=== PATIENT | male | born 1965 | race Caucasian/White ===

== ENCOUNTER 2018-12-15 17:07 | Inpatient (IN) ==
[2018-12-15] MEDS ORDERED: THIAMINE INJ 100 MG, FOLIC ACID INJ 1 MG, MULTIVITAMIN INJ 10 ML in SODIUM CHLORIDE 0.9... IV ONE (18:30)
[2018-12-15] MEDS: chlordiazePOXIDE 25 MG CAPSULE PO SCH ×2 (19:18→23:32)
[2018-12-15] MEDS: NICOTINE 21 MG/24 HR PATCH TRANSDERM SCH (19:19)
[2018-12-15] MEDS: ENOXAPARIN 40 MG/0.4 ML SYRINGE SUBCUT SCH (20:15)
[2018-12-15] MEDS: LORazepam 2 MG/1 ML VIAL IV PRN (21:49)
[2018-12-16 04:46] LABS: Basophils % 0.2 % (0.0-0.8); Eosinophils # 0.1 10*3/uL (0.0-0.87); Eosinophils % 1.6 % (0.00-10.9); Hematocrit 35.4 VOL% (42.0-52.0); Hemoglobin 11.7 GM/DL (14.0-18.0); Immature Granulocytes % 0.2 %; Immature Granulocytes Absolute 0.01 #; Lymphocytes # 1.4 10*3/uL (1.4-4.0); Lymphocytes % 32.3 % (21.2-54.2); Mean Corpuscular HGB Conc 33.1 GM/DL (32-36); Mean Corpuscular Volume 99.4 FL (87-102); Mean Platelet Volume 9.5 FL (9.6-12.0); Monocytes % 11.5 % (1.7-12.7); Neutrophils % 54.2 % (38.7-73.9); Platelet Count 143 T/CUMM (130-400); Red Blood Count 3.56 MC/CUMM (3.8-5.5); Red Cell Distribution Width 13.2 % (9.3-17.3); White Blood Count 4.3 T/CUMM (4-12)
[2018-12-16 04:55] LABS: Albumin 3.2 G/DL (3.4-5.0); Calcium 8.1 MG/DL (8.5-10.1); Osmolality,Calculated 280.3 MOS/KG (273-304); Total Protein 5.9 G/DL (6.4-8.3)
[2018-12-16] MEDS: chlordiazePOXIDE 25 MG CAPSULE PO SCH ×3 (06:32→19:24)
[2018-12-16] MEDS: NICOTINE 21 MG/24 HR PATCH TRANSDERM SCH (08:31)
[2018-12-16] MEDS: THIAMINE 100 MG TABLET PO SCH (08:31)
[2018-12-16] MEDS: FOLIC ACID 1 MG TABLET PO SCH (08:31)
[2018-12-16] MEDS ORDERED: METHOCARBAMOL 750 MG TABLET PO PRN (09:24)
[2018-12-16] MEDS ORDERED: DICYCLOMINE 10 MG CAPSULE PO PRN (09:24)
[2018-12-16] MEDS: HydrOXYzine PAMOATE 25 MG CAPSULE PO PRN ×3 (10:25→23:36)
[2018-12-16] MEDS: ONDANSETRON 4 MG/2 ML VIAL IV PRN ×2 (10:25→15:49)
[2018-12-16] MEDS: cloNIDine 0.1 MG TABLET PO SCH ×2 (11:50→20:17)
[2018-12-16] MEDS: ENOXAPARIN 40 MG/0.4 ML SYRINGE SUBCUT SCH (20:17)
[2018-12-16] MEDS: PRAMIPEXOLE 0.25 MG TABLET PO SCH (20:17)
[2018-12-17] MEDS: chlordiazePOXIDE 25 MG CAPSULE PO SCH ×3 (02:17→17:26)
[2018-12-17] MEDS: THIAMINE 100 MG TABLET PO SCH (08:42)
[2018-12-17] MEDS: FOLIC ACID 1 MG TABLET PO SCH (08:42)
[2018-12-17] MEDS: cloNIDine 0.1 MG TABLET PO SCH (08:42)
[2018-12-17] MEDS: NICOTINE 21 MG/24 HR PATCH TRANSDERM SCH (08:43)
[2018-12-17] MEDS: hydrALAZINE 20 MG/1 ML VIAL IV PRN (12:39)
[2018-12-17] MEDS: LORazepam 2 MG/1 ML VIAL IV PRN (16:31)
[2018-12-17] MEDS: ENOXAPARIN 40 MG/0.4 ML SYRINGE SUBCUT SCH (21:38)
[2018-12-17] MEDS: PRAMIPEXOLE 0.25 MG TABLET PO SCH (21:40)
[2018-12-18] MEDS: chlordiazePOXIDE 25 MG CAPSULE PO SCH ×2 (02:48→09:29)
[2018-12-18 07:40] VITALS: BP 167/106
[2018-12-18] MEDS: hydrALAZINE 20 MG/1 ML VIAL IV PRN (08:53)
[2018-12-18] MEDS ORDERED: LISINOPRIL 10 MG TABLET PO SCH (09:00)
[2018-12-18] MEDS: FOLIC ACID 1 MG TABLET PO SCH (09:29)
[2018-12-18] MEDS: THIAMINE 100 MG TABLET PO SCH (09:29)
[2018-12-18] MEDS: NICOTINE 21 MG/24 HR PATCH TRANSDERM SCH (09:30)
== END 2018-12-18 11:02 | disposition home or self-care (01) | DRG 897 ==
LOC: SUATTDRO 17:42 → N.4E 17:42
PROVIDERS: ADMIT Hospitalist; ATTEND Internal Medicine